=== PATIENT | female | born 1985 | race Hispanic/Latino ===

== ENCOUNTER 2020-10-20 20:06 | Emergency (ER) | payer OTHER | END 2020-10-20 21:00 | disposition home or self-care (01) | LOC: BURERS 20:06 | DX: Z03.89 Encounter for observation for other suspected diseases and conditions ruled out (principal) | CPT/HCPCS: 99282 ==

== ENCOUNTER 2020-12-16 17:46 | Emergency (ER) | payer OTHER ==
[2020-12-17 06:18] LABS: SARS-CoV-2 PCR by NAA Not Detected (NotDetected)
== END 2020-12-16 18:41 | disposition home or self-care (01) ==
LOC: BURERS 17:46
DX: Z20.822 Contact with and (suspected) exposure to COVID-19 (principal); Z79.899 Other long term (current) drug therapy
CPT/HCPCS: 87635; 99281; U0003; U0005

== ENCOUNTER 2021-08-08 16:26 | Emergency (ER) | payer OTHER ==
[2021-08-08 17:33] LABS: #Basophils 0.1 thou/uL (0.0-0.2); #Eosinphils 0.1 thou/uL (0.0-0.7); #Lymphocytes 2.8 thou/uL (1.20-3.40); #Monocytes 0.5 thou/uL (0.11-0.59); #Neutrophils 6.7 thou/uL (1.40-6.50); %Basophils 0.8 % (0.0-1.0); %Eosinophils 0.6 % (0.0-10.0); %Lymphocytes 27.9 % (21.0-51.0); %Monocytes 4.5 % (0.0-10.0); %Neutrophils 66.2 % (42.0-75.0); Hemoglobin 15.7 g/dL (12.0-16.0); Mean Corpuscular HGB CONC 32.8 g/dL (32.0-36.0); Mean Corpuscular Hemoglobin 29.6 pg (27.0-31.0); Mean Corpuscular Volume 90.3 fL (78.0-98.0); Mean Platelet Volume 5.8 fL (7.4-10.4); Platelet Count 449 thou/uL (130-400); RBC Distribution Width 12.5 % (11.5-14.5); Red Blood Cell (RBC) Count 5.31 mill/uL (4.20-5.40); White Blood Cell (WBC) Count 10.2 thou/uL (4.8-10.8)
[2021-08-08 17:49] LABS: BHCG - Serum Negative (NEGATIVE); Pregs Control Background? CLEAR/WHITE (CLR/WHITE); Pregs Control Bar Appear? YES (CONTROL BAR)
[2021-08-08 17:51] LABS: ALT (SGPT) 28 U/L (8-55); AST (SGOT) 17 U/L (5-34); Albumin 4.4 g/dL (3.5-5.0); Alkaline Phosphatase 89 U/L (40-110); Anion Gap 15 mmol/L (10-20); BUN (Urea Nitrogen) 10 mg/dL (7.0-18.7); Bilirubin, Total 0.3 mg/dL (0.2-1.2); Calc. Creatinine Clearance 0 mL/min (70-130); Calcium 10.1 mg/dL (7.8-10.44); Carbon Dioxide 25 mmol/L (22-29); Chloride 104 mmol/L (98-107); Glucose 111 mg/dL (70-105); Potassium 4.1 mmol/L (3.5-5.1); Protein, Total 8.4 g/dL (6.0-8.3); Sodium 140 mmol/L (136-145)
[2021-08-08] MEDS ORDERED: Metoclopramide HCl 10 MG/2 ML VIAL ONE (17:51)
[2021-08-08] MEDS ORDERED: diphenhydrAMINE 50 MG/ML VIAL ONE (17:51)
[2021-08-08] MEDS ORDERED: Ketorolac Tromethamine 30 MG/ML VIAL ONE (18:53)
== END 2021-08-08 19:26 | disposition home or self-care (01) ==
LOC: BURERS 16:26
DX: J32.9 Chronic sinusitis, unspecified (principal)
CPT/HCPCS: 36415; 70450; 80053; 84703; 85025; 96374; 96375; J1200; J1885; J2765

== ENCOUNTER 2021-10-11 11:19 | Outpatient (CLI) | payer OTHER | END 2021-10-11 11:20 | disposition home or self-care (01) | LOC: BURRAD 11:19 | PROVIDERS: ATTEND Physician Assistant | DX: M54.42 Lumbago with sciatica, left side (principal); M47.816 Spondylosis without myelopathy or radiculopathy, lumbar region | CPT/HCPCS: 72100 ==

== ENCOUNTER 2023-07-21 20:36 | Emergency (ER) | payer OTHER ==
[2023-07-21 21:08] LABS: #Eosinphils 0.1 thou/uL (0.0-0.7); #Lymphocytes 2.9 thou/uL (1.20-3.40); #Monocytes 0.4 thou/uL (0.11-0.59); %Basophils 0.6 % (0.0-1.0); %Eosinophils 0.8 % (0.0-10.0); %Lymphocytes 34.6 % (21.0-51.0); %Monocytes 4.5 % (0.0-10.0); %Neutrophils 59.5 % (42.0-75.0); Hematocrit 41.2 % (36.0-47.0); Hemoglobin 13.2 g/dL (12.0-16.0); Mean Corpuscular HGB CONC 31.9 g/dL (32.0-36.0); Mean Corpuscular Hemoglobin 28.3 pg (27.0-31.0); Mean Corpuscular Volume 88.6 fl (78.0-98.0); Mean Platelet Volume 5.5 fL (7.4-10.4); Platelet Count 380 10x3/uL (130-400); RBC Distribution Width 11.3 % (11.5-14.5); Red Blood Cell (RBC) Count 4.65 mill/uL (4.20-5.40); White Blood Cell (WBC) Count 8.4 10x3/uL (4.8-10.8)
[2023-07-21] MEDS ORDERED: Ondansetron ODT 4 MG TAB ONE (21:20)
[2023-07-21 21:21] LABS: ALT (SGPT) 21 U/L (8-55); AST (SGOT) 15 U/L (5-34); Albumin 4.1 g/dL (3.5-5.0); Alkaline Phosphatase 71 U/L (40-110); Anion Gap 15 mmol/L (10-20); BUN (Urea Nitrogen) 11 mg/dL (7.0-18.7); Bilirubin, Total 0.4 mg/dL (0.2-1.2); Calc. Creatinine Clearance 0 mL/min (70-130); Calcium 8.8 mg/dL (7.8-10.44); Carbon Dioxide 22 mmol/L (22-29); Chloride 106 mmol/L (98-107); Estimated GFR 70; Globulin 3.2 g/dL (2.4-3.5); Glucose 143 mg/dL (70-105); Lipase 46 U/L (8-78); Potassium 3.5 mmol/L (3.5-5.1); Protein, Total 7.3 g/dL (6.0-8.3); Sodium 139 mmol/L (136-145)
[2023-07-21 21:27] LABS: Troponin I Less than 0.010 ng/mL (< 0.028)
== END 2023-07-21 22:07 | disposition home or self-care (01) ==
LOC: BURERS 20:36
DX: R07.89 Other chest pain (principal); Z79.899 Other long term (current) drug therapy
CPT/HCPCS: 36415; 71045; 80053; 83690; 84484; 85025; 85379; 93005; Q0162

== ENCOUNTER 2023-12-23 07:54 | Emergency (ER) | payer OTHER ==
[2023-12-23 09:19] LABS: SARS-CoV-2 NAA Rapid Test Not Detected (NotDetected)
== END 2023-12-23 09:35 | disposition home or self-care (01) ==
LOC: BURERS 07:54
DX: B34.9 Viral infection, unspecified (principal); I10 Essential (primary) hypertension
CPT/HCPCS: 87081; 87430; 99283

== ENCOUNTER 2024-04-24 10:17 | Emergency (ER) | payer OTHER ==
[2024-04-24] MEDS ORDERED: Bicillin LA 1.2 MILLION UNITS/2 ML SYRINGE ONE (10:53)
[2024-04-24] MEDS ORDERED: Dexamethasone 10 MG/ML VIAL ONE (10:53)
== END 2024-04-24 11:30 | disposition home or self-care (01) ==
LOC: BURERS 10:17
DX: J02.0 Streptococcal pharyngitis (principal); I10 Essential (primary) hypertension
CPT/HCPCS: 87081; 87430; 96372; 99283; J0561; J1100

== ENCOUNTER 2024-04-26 18:47 | Emergency (ER) | payer OTHER ==
[2024-04-26] MEDS ORDERED: Metoclopramide HCl 10 MG (2 mL) VIAL ONE (19:15)
[2024-04-26] MEDS ORDERED: Dexamethasone 10 MG/ML VIAL ONE (19:15)
[2024-04-26] MEDS ORDERED: diphenhydrAMINE 50 MG/ML VIAL ONE (19:15)
[2024-04-26 19:49] LABS: Pregnancy Test - Urine (BHCG) Negative (Negative); Pregu Control Background? CLEAR/WHITE (CLR/WHITE); Pregu Control Bar Appear? YES (CONTROL BAR); Specific Gravity 1.028 (1.002-1.036)
[2024-04-26 19:52] LABS: ALT (SGPT) 25 U/L (8-55); AST (SGOT) 17 U/L (5-34); Alkaline Phosphatase 67 U/L (40-110); Anion Gap 13 mmol/L (10-20); BUN (Urea Nitrogen) 11 mg/dL (7.0-18.7); Bilirubin, Total 0.3 mg/dL (0.2-1.2); Calc. Creatinine Clearance 0 mL/min (70-130); Calcium 8.6 mg/dL (7.8-10.44); Carbon Dioxide 26 mmol/L (22-29); Estimated GFR 94; Glucose 89 mg/dL (70-105); Potassium 3.5 mmol/L (3.5-5.1); Sodium 139 mmol/L (136-145)
[2024-04-26 19:58] LABS: #Basophils 0.1 thou/uL (0.0-0.2); #Eosinphils 0.1 thou/uL (0.0-0.7); #Lymphocytes 1.8 thou/uL (1.20-3.40); #Monocytes 0.4 thou/uL (0.11-0.59); #Neutrophils 6.2 thou/uL (1.40-6.50); %Eosinophils 0.8 % (0.0-10.0); %Lymphocytes 21.1 % (21.0-51.0); %Monocytes 4.6 % (0.0-10.0); %Neutrophils 72.5 % (42.0-75.0); Hematocrit 43.3 % (36.0-47.0); Hemoglobin 13.8 g/dL (12.0-16.0); Mean Corpuscular HGB CONC 31.9 g/dL (32.0-36.0); Mean Corpuscular Hemoglobin 28.7 pg (27.0-31.0); Mean Corpuscular Volume 90.1 fl (78.0-98.0); Mean Platelet Volume 5.7 fL (7.4-10.4); Platelet Count 371 10x3/uL (130-400); RBC Distribution Width 11.9 % (11.5-14.5); White Blood Cell (WBC) Count 8.5 10x3/uL (4.8-10.8)
[2024-04-26 19:59] LABS: Influenza A by NAA Not Detected (NotDetected); Influenza B by NAA Not Detected (NotDetected); SARS-CoV-2 NAA Rapid Test Not Detected (NotDetected)
[2024-04-26 20:01] LABS: Chloride 104 mmol/L (98-107)
[2024-04-26 20:04] LABS: Bilirubin Negative (Negative); Blood, Urine Negative (Negative); Clarity Clear (Clear); Glucose, Urine (Dipstick) Negative (Negative); Ketone, Urine Negative (Negative); Leukocyte Negative (Negative); Nitrite Negative (Negative); Protein, Urine (Dipstick) Negative (Neg-Trace); Urobilinogen 0.2 mg/dL (Less than 2)
[2024-04-26 20:12] LABS: Bacteria/HPF None Seen HPF (None Seen); CAUTI Indications for Culture Pelvic or flank pain; RBC/HPF None Seen HPF (0-3); Squamous Epithelial None Seen HPF (0-3); WBC/HPF None Seen HPF (0-3)
[2024-04-26 20:13] LABS: Urine Culture Reflex No No
== END 2024-04-26 20:32 | disposition home or self-care (01) ==
LOC: BURERS 18:47
DX: R51.9 Headache, unspecified (principal); R53.81 Other malaise; I10 Essential (primary) hypertension
CPT/HCPCS: 80053; 81001; 81025; 85025; 96374; 96375; J1100; J1200; J2765

== ENCOUNTER 2024-10-31 13:59 | Emergency (ER) | payer OTHER ==
[2024-10-31] MEDS ORDERED: Acetaminophen 500 MG TAB ONE (14:33)
[2024-10-31] MEDS ORDERED: Boostrix 0.5 ML (Tdap) VIAL (>/=7 yrs of age) ONE (14:33)
== END 2024-10-31 14:40 | disposition home or self-care (01) ==
LOC: BURERS 13:59
DX: S51.852A Open bite of left forearm, initial encounter (principal); S51.832A Puncture wound without foreign body of left forearm, initial encounter; I10 Essential (primary) hypertension; W55.01XA Bitten by cat, initial encounter
CPT/HCPCS: 90471; 90715